=== PATIENT | female | born 1940 | race Caucasian/White ===

== ENCOUNTER 2017-02-25 10:11 | Inpatient (IN) | payer MEDICARE, OTHER ==
[2017-02-25 11:32] LABS: #Lymphocytes 0.5 thou/uL (1.20-3.40); #Monocytes 1.1 thou/uL (0.11-0.59); #Neutrophils 16.5 thou/uL (1.40-6.50); %Basophils 0.1 % (0.0-1.0); %Lymphocytes 2.7 % (21.0-51.0); %Neutrophils 91.2 % (42.0-75.0); Hemoglobin 10.6 g/dL (12.0-16.0); Mean Corpuscular HGB CONC 30.8 g/dL (32.0-36.0); Mean Corpuscular Hemoglobin 24.1 pg (27.0-31.0); Mean Corpuscular Volume 78.2 fl (81.0-99.0); Mean Platelet Volume 7.5 fL (7.4-10.4); Platelet Count 473 thou/uL (130-400); RBC Distribution Width 18.4 % (11.5-14.5); Red Blood Cell (RBC) Count 4.41 mill/uL (4.20-5.40); White Blood Cell (WBC) Count 18.1 thou/uL (4.8-10.8)
[2017-02-25 11:54] LABS: ALT (SGPT) 43 U/L (8-55); AST (SGOT) 47 U/L (5-34); Alkaline Phosphatase 64 U/L (40-150); Anion Gap 12 mmol/L (10-20); BUN (Urea Nitrogen) 30 mg/dL (9.8-20.1); Bilirubin, Total 0.4 mg/dL (0.2-1.2); Calc. Creatinine Clearance 0 mL/min (70-130); Calcium 9.6 mg/dL (7.8-10.44); Carbon Dioxide 25 mmol/L (23-31); Chloride 101 mmol/L (98-107); Estimated GFR-MDRD 77; Globulin 3.2 g/dL (2.4-3.5); Glucose 145 mg/dL (83-110); Potassium 4.2 mmol/L (3.5-5.1); Protein, Total 7.2 g/dL (6.0-8.3); Sodium 134 mmol/L (136-145)
[2017-02-25] MEDS ORDERED: Fentanyl 100 MCG/2 ML VIAL ONE (12:11)
--- NOTE | 2017-02-25 13:59 | HP ---
PRIMARY CARE PHYSICIAN: Ashlyn Spaulding M.D. REASON FOR ADMISSION: Small-bowel obstruction. HISTORY OF PRESENT ILLNESS: A 76-year-old female who initially went to [facility] with a complaint of nausea, vomiting, and abdominal pain. The patient reports that last night she had several times vomiting containing food particles and bile. She was also continuously throwing up this morning as well and she was having abdominal pain which was crampy in nature, 5/10 in intensity. Subsequently patient was also noted abdominal bloating and distention. Her last bowel movement was this morning. The patient is still feeling gurgling sound in her abdomen. She also passes gas, but she is feeling more crampy pain. The patient was feeling dizzy, lightheaded, and weak and that is why she decided to go to the emergency room. At [facility], patient had CT of the abdomen and pelvis which showed small-bowel obstruction with multiple dilated fluid filled proximal small bowel loops and numerous decompressed small bowel loops in the right lower quadrant, mild inflammatory stranding noted in the right lower quadrant without any abscess, fatty liver, and sigmoid diverticulosis. At [facility], patient was given morphine 4 mg, Bentyl 20 mg, Reglan 10 mg, Zofran 4 mg, Pepcid 20 mg, IV fluids, Zofran ODT and subsequently this patient was transferred to our hospital for higher level of care. ER physician consulted Dr. Decker and Dr. Decker recommended medicine admission and he will consult. When I saw this patient, at that time, patient was complaining of abdominal distention. She denies any fever or chills. She denies any hematemesis. She denies any flu-like illness. She denies any constipation or diarrhea. REVIEW OF SYSTEMS: The following complete review of systems was negative, unless otherwise mentioned in the HPI or below: Constitutional: Weight loss or gain, ability to conduct usual activities. Skin: Rash, itching. Eyes: Double vision, pain. ENT/Mouth: Nose bleeding, neck stiffness, pain, tenderness. Cardiovascular: Palpitations, dyspnea on exertion, orthopnea. Respiratory: Shortness of breath, wheezing, cough, hemoptysis, fever or night sweats. Gastrointestinal: Poor appetite, abdominal pain, heartburn, nausea, vomiting, constipation, or diarrhea. Genitourinary: Urgency, frequency, dysuria, nocturia. Musculoskeletal: Pain, swelling. Neurologic/Psychiatric: Anxiety, depression. Allergy/Immunologic: Skin rash, bleeding tendency. Please see my HPI for pertinent positives and negative. All other review of systems reviewed and negative except as mentioned in the HPI. PAST MEDICAL HISTORY: Hypertension on oral hypertensive medication. PAST SURGICAL HISTORY: Cholecystectomy, , tonsillectomy. PAST PSYCHIATRIC HISTORY: Reviewed and negative. SOCIAL HISTORY: The patient lives at home with family. No history of tobacco, alcohol or illicit drug use abuse. FAMILY HISTORY: No strong family history of premature CAD, CVA or cancer. ALLERGY: No known drug allergy. CURRENT HOME MEDICATIONS: Prinzide one tablet daily, verapamil ER one tablet daily, dose not certain because patient did not bring those medication at this point. EMERGENCY ROOM COURSE: The patient is given morphine 4 mg, Bentyl 20 mg, Reglan 10 mg, Zofran 4 mg, Pepcid 20 mg, IV fluid, and Zofran ODT. The patient is given fentanyl 50 microgram and IV fluids 1 more liter in our emergency room. PHYSICAL EXAMINATION: VITAL SIGNS: Currently, blood pressure 116/65, pulse 103, respiratory rate 16, temperature 98.8, saturation 95% on room air, and weight 72.5 kilograms. GENERAL: Patient is currently alert, awake, no obvious acute distress. HEAD: Normocephalic, atraumatic. EYES: Pupils round, reactive to light. Extraocular muscles intact. ENT: Oropharynx within normal limits. Dry mucous membranes, no oral lesions. No pharyngeal erythema, no exudate. NECK: Supple, no JVD, no thyromegaly, no carotid bruits, no meningeal signs of irritation. LUNGS: Clear to auscultation without any rhonchi or rales. CARDIAC: S1 and S2 regular. No murmur, no gallop, no rub. ABDOMEN: Distended, bowel sounds present. Guarding and peritoneal signs noted especially in upper abdomen as well as in right lower quadrant. No suprapubic discomfort noted. BACK: No CVA tenderness. EXTREMITIES: Upper extremity; passive movement of all was normal. Lower extremities: No edema. Good peripheral pulsation. SKIN: No skin rash. HEMATOLOGICAL SYSTEM: No lymphadenopathy. PSYCHIATRIC: Normal affect. IMAGING DATA AND SIGNIFICANT LABORATORY DATA: 1. CT of the abdomen and pelvis showing small-bowel obstruction with multiple dilated loops, proximal small bowel and numerous decompressed small bowel loops in right lower quadrant. Associated inflammatory changes in right lower quadrant, mesenteric fat, no abscess, fatty liver and sigmoid diverticulosis without diverticulitis. 2. X-ray abdomen showing partial small-bowel obstruction. 3. CBC: WBC 18.1, hemoglobin 10.6, platelet 473 with left shift. 4. BMP: Sodium 134, potassium 4.2, chloride 101, carbon dioxide 25, BUN 30, creatinine 0.74, glucose 145, calcium 9.6. 5. LFT: AST 47, ALT 43, alkaline phosphatase 64, albumin 4.0. ASSESSMENT AND PLAN/IMPRESSION: 1. Partial small-bowel obstruction. This patient has several surgeries in the past including cholecystectomy, , I am suspecting her partial small- bowel obstruction is related with adhesions. At this point, we will treat medically and conservatively with NG tube with low intermittent suction. She will be only allowed with medicine with sips of water. We will consult General Surgery for backup. We are hoping best that with conservative therapy, she should improve. We will try to get small bowel x-ray tomorrow. After negative small-bowel obstruction, then we will start advancing diet to gastrointestinal bland diet. We will monitor her at the surgical floor while in hospital. The patient will be given IV fluid with n.p.o. status. We will control her pain with morphine p.r.n. basis. The patient also has some inflammatory stranding in mesenteric fat and that is why we will start empiric antibiotic therapy with Levaquin and Flagyl. 2. Dehydration. The patient will be given IV fluid with NS at 125 mL per hour. 3. Leukocytosis, likely related with mesenteric fat stranding and inflammatory changes in right lower quadrant. We will start Levaquin and Flagyl while in hospital. 4. Microcytic anemia. We will check ferritin, iron, TIBC and based on that finding, we will decide whether we need to treat with iron infusion or not. We will repeat CBC tomorrow. 5. Hypertension. Currently, patient is having low blood pressures, so we will hold on antihypertensive medication. We will verify her home medication and then we will resume medication as needed. 6. Deep venous thrombosis prophylaxis, Lovenox 40 mg subcu daily. 7. Gastrointestinal prophylaxis, Pepcid 20 mg IV b.i.d. 8. Code status: The patient is FULL CODE. Patient's daughter is surrogate decision maker. Disposition plan based on clinical course. We are expecting patient's stay in the hospital more than 2 midnights. Plan of care discussed with the patient and family member at bedside in the emergency room. DARIA
--- NOTE | 2017-02-25 15:06 | RAD ---
CHEST ONE VIEW: HISTORY: Small bowel obstruction. NG tube placement. COMPARISON: Abdomen radiograph from the same day. FINDINGS: Enteric tube is in place with the tip in the gastric body. Lungs are hypoinflated. No pneumothorax. IMPRESSION: Enteric tube tip in the gastric body. POS: OFF
[2017-02-25] MEDS ORDERED: Diabetic Tussin 200 MG/10 ML UDCUP PO PRN (15:28)
[2017-02-25] MEDS ORDERED: Mag-Al 1200 mg/1200 mg/30 ML UDCUP PO PRN (15:28)
[2017-02-25] MEDS ORDERED: Eucerin (Mineral Oil/Petrolatum,White) 30 gm Jar TOP PRN (15:28)
[2017-02-25] MEDS ORDERED: Ondansetron ODT 4 MG TAB PO PRN (15:28)
[2017-02-25] MEDS ORDERED: Chloraseptic Spray 180 ml Bottle PO PRN (15:28)
[2017-02-25] MEDS ORDERED: Acetaminophen 325 MG TAB PO PRN (15:28)
[2017-02-25] MEDS ORDERED: Artificial Tears 18 DROP/0.9 ML EA EYE PRN (15:28)
[2017-02-25] MEDS ORDERED: Milk Of Magnesia 30 ML UDCUP PO PRN (15:28)
[2017-02-25] MEDS ORDERED: Acetaminophen 650 MG Suppository PR PRN (15:28)
[2017-02-25] MEDS ORDERED: Sodium Chloride 0.65% Nasal 44 ML BOT EA NARE PRN (15:28)
[2017-02-25] MEDS ORDERED: Bisacodyl 10 MG SUPP PR PRN (15:28)
[2017-02-25] MEDS ORDERED: Ondansetron HCl/PF 4 MG/2 ML Vial IVP PRN (15:28)
[2017-02-25] MEDS ORDERED: Loratadine 10 MG TAB PO PRN (15:28)
[2017-02-25] MEDS ORDERED: Morphine 4 MG/ML VIAL SLOW IVP PRN (15:28)
[2017-02-25] MEDS ORDERED: hydrALAZINE 20 MG/ML VIAL SLOW IVP PRN (15:28)
[2017-02-25] MEDS: Sodium Chloride 0.9% 1,000 ML IV SCH (15:30)
[2017-02-25 16:25] VITALS: BMI 32.3
--- NOTE | 2017-02-25 17:57 | CON ---
DATE OF CONSULTATION: 02/25/2017 REQUESTING PHYSICIAN: Lissett De La Cruz M.D. ATTENDING SURGEON: Dr. Decker. REASON FOR CONSULTATION: Small-bowel obstruction. HISTORY OF PRESENT ILLNESS: The patient is a 76-year-old woman who reports having 4-5 year history o f intermittent nausea and vomiting which have at times required hospital admission. They usually res olve through nonoperative management to include medications and/or NG tube placement. The patient mo st recently yesterday had an episode of nausea and vomiting. Denies diarrhea. Denies fever, chills, or weight loss. The patient presented to the Emergency Department in [place] where she underwent e valuation and examination to include IV contrast, CT of her abdomen and pelvis that showed a possible small-bowel obstruction and the patient was transferred here to our facility where she was admitted and we were asked to evaluate her by consultation. CURRENT MEDICATIONS: Prinzide, verapamil ER. PAST MEDICAL HISTORY: Hypertension. PAST SURGICAL HISTORY: Cholecystectomy, , and tonsillectomy. SOCIAL HISTORY: Patient currently lives at home with family. She denies drug, tobacco or alcohol us e. ALLERGIES: No known allergies. REVIEW OF SYSTEMS: Ten point review of systems is negative unless otherwise stated. PHYSICAL EXAMINATION: VITAL SIGNS: Temperature 98.3, heart rate 94, blood pressure 127/67, oxygen saturation 94% on room a ir. GENERAL: The patient is sitting in hospital bed. She is awake, alert, and oriented x3. She does navas ve an NG tube in place in her right naris. HEENT: Head is normocephalic, atraumatic. Eyes: Extraocular motion intact. PERRLA bilaterally. E ars are atraumatic without discharge. Right naris has NG tube in place, left naris is atraumatic wit hout discharge. Oropharynx is clear. NECK: Nontender. Trachea is midline. No JVD. CHEST: Clear to auscultation bilaterally. HEART: Regular rate and rhythm. ABDOMEN: Soft and nontender with no peritoneal signs. She does have hypoactive bowel sounds. BACK: Nontender. Specifically, no CVA tenderness. EXTREMITIES: Neurovascularly intact. No evidence of edema. LABORATORY DATA: White blood cell count 18.1, hemoglobin 10.6, hematocrit 34.5, and platelets 473. Sodium 134, potassium 4.2, chloride 101, CO2 25, BUN 30, creatinine 0.74, glucose 145. LFTs are unre markable. RADIOGRAPHS: 1. CT of the abdomen and pelvis with IV contrast shows evidence of a small-bowel obstruction with mu ltiple dilated fluid filled proximal small bowel loops and numerous decompressed small bowel loops in the right lower quadrant suggesting a right lower quadrant/mid right abdomen transition point. Mild associated inflammatory stranding noted in the right lower quadrant mesenteric fat, with no evidence for abscess or free intraperitoneal air. The appendix appears normal. 2. Probable hepatic steatosis. 3. Sigmoid diverticulosis without evidence of diverticulitis. 4. AP chest shows NG tube with tip lying in the gastric body. ASSESSMENT AND PLAN: 1. Abdominal pain with nausea and vomiting. 2. Possible small-bowel obstruction. The patient does report passing gas and feeling much better af ter the NG tube has been placed. Plan will be to obtain a small bowel follow through to evaluate for possible small-bowel obstruction. Continue IV hydration and NG tube to intermittent suction, antiem etics and pain control. Evaluation examination and radiographs and laboratory findings were all disc ussed with Dr. Decker, who was in agreement with this plan. We will reevaluate the patient in the [facility], [place], sooner as needed.
[2017-02-25] MEDS: Famotidine/PF 20 mg/2ml Vial SLOW IVP SCH (21:29)
[2017-02-25 22:06] LABS: Bilirubin Negative (Negative); Blood, Urine Negative (Negative); Clarity CLEAR (Clear); Glucose, Urine (Dipstick) Negative (Negative); Leukocyte Negative (Negative); Nitrite Negative (Negative); Protein, Urine (Dipstick) Negative (Neg-Trace); Specific Gravity, Urine 1.036 (1.002-1.036); Urobilinogen 0.2 mg/dL (0.2-1.0)
[2017-02-25 22:08] LABS: Bacteria/HPF None Seen HPF (None Seen); Hyaline Casts/LPF 0-3 HYALINE CAST LPF (0-3 Hyaline); Squamous Epithelial None Seen HPF (0-3); WBC/HPF 0-3 HPF (0-3)
--- NOTE | 2017-02-25 23:31 | PRG ---
DATE OF SERVICE: 02/25/2017 SUBJECTIVE: Ms. Alves is a 76-year-old female who has a general surgical consultation earlier this afternoon for possible small-bowel obstruction. The patient had an NG tube placed. It is currently functioning well. Patient denies any further nausea or vomiting. OBJECTIVE: VITAL SIGNS: Stable. Patient is afebrile. GENERAL: Patient resting in bed, in no acute distress. LUNGS: Breathing nonlabored. ABDOMEN: Soft, nontender, nondistended. ASSESSMENT AND PLAN: As documented in consultation note earlier today. Continue care as ordered. W e will continue to monitor.
[2017-02-26] MEDS: HYDROcodone/Acetaminophen 5/325 mg Tablet PO PRN ×3 (01:02→19:48)
[2017-02-26] MEDS: Sodium Chloride 0.9% 1,000 ML IV SCH ×3 (02:12→22:38)
[2017-02-26 06:10] LABS: #Eosinphils 0.1 thou/uL (0.0-0.7); #Lymphocytes 1.2 thou/uL (1.20-3.40); #Monocytes 1.5 thou/uL (0.11-0.59); #Neutrophils 9.9 thou/uL (1.40-6.50); %Basophils 0.4 % (0.0-1.0); %Eosinophils 1.1 % (0.0-10.0); %Lymphocytes 9.7 % (21.0-51.0); %Monocytes 11.4 % (0.0-10.0); %Neutrophils 77.4 % (42.0-75.0); Hemoglobin 8.4 g/dL (12.0-16.0); Mean Corpuscular HGB CONC 30.4 g/dL (32.0-36.0); Mean Corpuscular Hemoglobin 24.3 pg (27.0-31.0); Mean Corpuscular Volume 79.7 fl (81.0-99.0); Mean Platelet Volume 7.1 fL (7.4-10.4); Platelet Count 361 thou/uL (130-400); RBC Distribution Width 18.5 % (11.5-14.5); Red Blood Cell (RBC) Count 3.46 mill/uL (4.20-5.40); White Blood Cell (WBC) Count 12.8 thou/uL (4.8-10.8)
[2017-02-26 06:17] LABS: ALT (SGPT) 34 U/L (8-55); AST (SGOT) 34 U/L (5-34); Albumin 3.2 g/dL (3.4-4.8); Alkaline Phosphatase 53 U/L (40-150); Anion Gap 11 mmol/L (10-20); BUN (Urea Nitrogen) 19 mg/dL (9.8-20.1); Bilirubin, Total 0.4 mg/dL (0.2-1.2); Calc. Creatinine Clearance 86 mL/min (70-130); Calcium 8.6 mg/dL (7.8-10.44); Carbon Dioxide 22 mmol/L (23-31); Chloride 111 mmol/L (98-107); Estimated GFR-MDRD 88; Globulin 2.4 g/dL (2.4-3.5); Glucose 94 mg/dL (83-110); Iron 16 ug/dL (50-170); Iron Binding Capacity, Total 395 mcg/dL (265-497); Magnesium 2.2 mg/dL (1.6-2.6); Phosphorus 2.3 mg/dL (2.3-4.7); Protein, Total 5.6 g/dL (6.0-8.3); Sodium 140 mmol/L (136-145)
[2017-02-26 06:19] LABS: Lactic Acid 0.7 mmol/L (0.5-2.2)
[2017-02-26] MEDS ORDERED: FLU VACC TS2017-18 (>65YR) 0.5 ML SYRINGE IM ONE (09:00)
--- NOTE | 2017-02-26 10:29 | PDOC.PN ---
- Subjective Encounter Start Date: 02/26/17 Encounter Start Time: 08:50 Patient seen and examined. No new complaints. No overnight events - Objective Resuscitation Status: Resuscitation Status FULL:Full Resuscitation MAR Reviewed: Yes Vital Signs & Weight: Vital Signs (12 hours) Temp Pulse Resp BP Pulse Ox 02/26/17 08:00 98.5 F 75 15 02/26/17 07:45 98.5 F 75 15 143/64 H 91 L 02/26/17 04:00 98.5 F 81 18 125/67 90 L 02/26/17 00:00 98.2 F 84 19 148/61 H 90 L Weight Weight 159 lb 15.831 oz I&O: 02/25/17 02/26/17 02/27/17 06:59 06:59 06:59 Intake Total 1432 Output Total 400 Balance 1032 Result Diagrams: 02/26/17 05:23 02/26/17 05:23 Radiology Reviewed by me: Yes Phys Exam - Physical Examination Constitutional: NAD HEENT: PERRLA, moist MMs Neck: no JVD, supple Respiratory: no wheezing, no rales, no rhonchi Cardiovascular: RRR, no significant murmur, no rub Gastrointestinal: soft, no distention, positive bowel sounds Musculoskeletal: no edema, pulses present Neurological: non-focal, normal sensation, moves all 4 limbs Psychiatric: normal affect, A&O x 3 Skin: no rash, normal turgor Dx/Plan (1) Partial small bowel obstruction Status: Acute (2) Hypertension Code(s): I10 - ESSENTIAL (PRIMARY) HYPERTENSION Status: Chronic (3) Iron deficiency anemia Code(s): D50.9 - IRON DEFICIENCY ANEMIA, UNSPECIFIED Status: Chronic (4) Obesity (BMI 30.0-34.9) Code(s): E66.9 - OBESITY, UNSPECIFIED Status: Chronic - Plan cont current plan of care, plan discussed w/ family * today small bowel xray * if normal will advance diet * will give one dose of iron infusion for anemia * medication reviewed as below * symptomatic treatment Review of Systems - Review of Systems ENT: negative: Ear Pain, Ear Discharge, Nose Pain, Nose Discharge, Nose Congestion, Mouth Pain, Mouth Swelling, Throat Pain, Throat Swelling, Other Respiratory: negative: Cough, Dry, Shortness of Breath, Hemoptysis, SOB with Excertion, Pleuritic Pain, Sputum, Wheezing Cardiovascular: negative: chest pain, palpitations, orthopnea, paroxysmal nocturnal dyspnea, edema, light headedness, other Gastrointestinal: negative: Nausea, Vomiting, Abdominal Pain, Diarrhea, Constipation, Melena, Hematochezia, Other Genitourinary: negative: Dysuria, Frequency, Incontinence, Hematuria, Retention , Other Musculoskeletal: negative: Neck Pain, Shoulder Pain, Arm Pain, Back Pain, Hand Pain, Leg Pain, Foot Pain, Other Skin: negative: Rash, Lesions, Mayank, Bruising, Other - Medications/Allergies Allergies/Adverse Reactions: Allergies Allergy/AdvReac Type Severity Reaction Status Date / Time No Known Allergies Allergy Unverified 02/25/17 15:42 Medications: Current Medications Acetaminophen (Tylenol) 650 mg PO Q4H PRN PRN Reason: Headache/Fever or Pain Acetaminophen (Tylenol) 650 mg TX Q4H PRN PRN Reason: Headache/Fever or Pain Hydrocodone Bitart/Acetaminophen ([place] 5/325) 1 tab PO Q4H PRN PRN Reason: Moderate Pain (4-6) Last Admin: 02/26/17 02:12 Dose: 1 tab Al Hydroxide/Mg Hydroxide (Maalox) 30 ml PO Q6H PRN PRN Reason: Heartburn or Indigestion Albuterol/Ipratropium (Duoneb) 3 ml NEB [id number] PRN PRN Reason: SOB &/or Wheezing Artificial Tears (Tears Naturale) 0 drop EA EYE PRN PRN PRN Reason: Dry Eyes Bisacodyl (Dulcolax) 10 mg TX Q24H PRN PRN Reason: Constipation Enoxaparin Sodium (Lovenox) 40 mg SC 0900 [facility] Famotidine (Pepcid) 20 mg SLOW IVP Q12HR [facility] Last Admin: 02/25/17 21:29 Dose: 20 mg Guaifenesin (Robitussin Sf) 200 mg PO Q4H PRN PRN Reason: Cough Hydralazine HCl (Apresoline) 10 mg SLOW IVP Q4H PRN PRN Reason: Systolic BP > 180 Sodium Chloride (Normal Saline 0.9%) 1,000 mls @ 100 mls/hr IV .Q10H [facility] Last Admin: 02/26/17 02:12 Dose: 1,000 mls Loratadine (Claritin) 10 mg PO DAILYPRN PRN PRN Reason: Sinus Symptoms Magnesium Hydroxide (Milk Of Magnesium) 30 ml PO DAILYPRN PRN PRN Reason: Constipation Mineral Oil/White Petrolatum (Eucerin Cream) 0 gm TOP BIDPRN PRN PRN Reason: Dry Skin Morphine Sulfate (Morphine) 2 mg SLOW IVP Q3H PRN PRN Reason: Pain Last Admin: 02/26/17 01:06 Dose: 2 mg Ondansetron HCl (Zofran Odt) 4 mg PO Q6H PRN PRN Reason: Nausea/Vomiting Ondansetron HCl (Zofran) 4 mg IVP Q6H PRN PRN Reason: Nausea/Vomiting Phenol (Chloraseptic [place] 180 Ml Bot) 0 ml PO PRN PRN PRN Reason: Sore Throat Sodium Chloride (Burt Nasal [place] 0.65%) 0 ml EA NARE QIDPRN PRN PRN Reason: Nasal Congestion
[2017-02-26] MEDS: Enoxaparin Sodium 40 MG/0.4 ML SYRINGE SC SCH (10:33)
[2017-02-26] MEDS: Famotidine/PF 20 mg/2ml Vial SLOW IVP SCH ×2 (10:34→19:50)
[2017-02-26] MEDS ORDERED: Iron Sucrose Complex 200 MG in Sodium Chloride 0.9% 250 ML 250 ML IVPB SCH (12:00)
--- NOTE | 2017-02-26 12:50 | RAD ---
GASTROGRAFIN SMALL BOWEL FOLLOW-THROUGH: HISTORY: The patient has a history of a more distal small bowel obstruction noted on recent CT. COMPARISON: CT examination of 02/25/2017. FINDINGS: Preliminary torque tester film shows less pronounced small bowel distention when compared to the previous CT study. Gastrografin was introduced through the NG tube. The small bowel transit time was approximately 45 m inutes. There is a transition from minimally dilated proximal to mid ileum to less dilated distal sm all bowel loops, but it is difficult to show a definite transition point. IMPRESSION: Findings compatible with a low grade partial small bowel obstruction. the degree of distention of th e small bowel loops is less pronounced than on the previous CT examination. POS: ALYCE
--- NOTE | 2017-02-26 15:10 | PRG ---
DATE OF SERVICE: 02/26/2017 SUBJECTIVE: The patient is hospital day #2 status post possible small-bowel obstruction. The patien t was evaluated yesterday and after her NG tube placement, patient felt that she had a significant im provement. This morning, she underwent a small bowel follow through. During the procedure, the patie nt had developed a significant amount of diarrhea and has had multiple bowel movements this morning t o the point that the patient states that is now her chief complaint. The patient denies nausea, bro es abdominal pain. PHYSICAL EXAMINATION: VITAL SIGNS: Temperature is 98.5, heart rate 75, blood pressure 143/64, respirations 15, oxygen satu ration 92% on room air. GENERAL: The patient is sitting in a chair at her bedside. She is awake, alert, and oriented x3. G [place]gow coma scale is 15. CHEST: Clear to auscultation bilaterally. HEART: Regular rate and rhythm. ABDOMEN: Soft, flat, nontender. EXTREMITIES: Neurovascularly intact x4. Per the nursing report, the patient had 400 mL of fluid from her NG tube overnight. LABORATORY DATA: White blood cell count 12.8, hemoglobin 8.4, hematocrit 27.6, platelets 361. Sodiu m 140, potassium 4.0, chloride 111, CO2 22, BUN 19, creatinine 0.66, magnesium 2.2, and phosphorus 2. 3. RADIOGRAPHIC FINDINGS: Small bowel follow through, findings compatible with low-grade partial small- bowel obstruction, the degree of distention of the small bowel loops is less pronounced than on the p revious CT examination. ASSESSMENT AND PLAN: Possible low grade small-bowel obstruction, resolving. Plan will be to discont inue her nasogastric tube and start clear liquid diet. We will evaluate this afternoon and if the rosangela calderon tolerates clears overnight, we will advance her diet in the morning. This case was discussed with Dr. Decker during rounds this morning.
--- NOTE | 2017-02-26 23:19 | PRG ---
DATE OF SERVICE: 02/26/2017 SUBJECTIVE: Julianne Alves is a 76-year-old female, hospitalized due to possible small-bowel obstr uction. Today, patient had multiple bowel movements. Her diet has been advanced. She is tolerating her diet at this time without complaints of nausea or vomiting. OBJECTIVE: VITAL SIGNS: Stable. GENERAL: The patient is afebrile, resting in bed, appears comfortable, breathing is nonlabored. ASSESSMENT: As documented daily progress note. PLAN: Continue care as ordered. Continue to monitor. A.m. labs.
[2017-02-27] MEDS: Sodium Chloride 0.9% 1,000 ML IV SCH ×2 (05:21→17:00)
[2017-02-27 06:14] LABS: Anion Gap 10 mmol/L (10-20); BUN (Urea Nitrogen) 18 mg/dL (9.8-20.1); Calc. Creatinine Clearance 88 mL/min (70-130); Calcium 8.9 mg/dL (7.8-10.44); Carbon Dioxide 24 mmol/L (23-31); Chloride 107 mmol/L (98-107); Estimated GFR-MDRD Greater than 90; Glucose 102 mg/dL (83-110); Phosphorus 1.6 mg/dL (2.3-4.7); Potassium 3.7 mmol/L (3.5-5.1); Sodium 137 mmol/L (136-145)
[2017-02-27] MEDS ORDERED: Potassium Phosphate 15 MMOL in Sodium Chloride 0.9% 250 ML 250 ML IVPB SCH (07:30)
[2017-02-27] MEDS: Enoxaparin Sodium 40 MG/0.4 ML SYRINGE SC SCH (10:01)
[2017-02-27] MEDS: Famotidine/PF 20 mg/2ml Vial SLOW IVP SCH (10:02)
--- NOTE | 2017-02-27 10:11 | PDOC.PN ---
- Subjective Encounter Start Date: 02/27/17 Encounter Start Time: 08:00 Patient seen and examined. No new complaints. No overnight events today pt has BRBPR - Objective Resuscitation Status: Resuscitation Status FULL:Full Resuscitation MAR Reviewed: Yes Vital Signs & Weight: Vital Signs (12 hours) Temp Pulse Resp BP Pulse Ox 02/27/17 07:52 98.5 F 96 16 133/68 93 L 02/27/17 04:50 98.2 F 79 16 133/69 91 L 02/27/17 00:04 98.9 F 90 17 125/71 99 Weight Weight 159 lb 15.831 oz I&O: 02/26/17 02/27/17 02/28/17 06:59 06:59 06:59 Intake Total 1432 1749 Output Total 400 Balance 1032 1749 Result Diagrams: 02/26/17 05:23 02/27/17 04:59 Radiology Reviewed by me: Yes Phys Exam - Physical Examination Constitutional: NAD HEENT: PERRLA, moist MMs, sclera anicteric Neck: no JVD, supple Respiratory: no wheezing, no rales, no rhonchi Cardiovascular: RRR, no significant murmur, no rub Gastrointestinal: soft, non-tender, no distention, positive bowel sounds Musculoskeletal: no edema, pulses present Neurological: non-focal, normal sensation, moves all 4 limbs Psychiatric: normal affect, A&O x 3 Skin: no rash, normal turgor Dx/Plan (1) Partial small bowel obstruction Status: Acute (2) Hypertension Code(s): I10 - ESSENTIAL (PRIMARY) HYPERTENSION Status: Chronic (3) Iron deficiency anemia Code(s): D50.9 - IRON DEFICIENCY ANEMIA, UNSPECIFIED Status: Chronic (4) Obesity (BMI 30.0-34.9) Code(s): E66.9 - OBESITY, UNSPECIFIED Status: Chronic (5) Lower GI bleed Code(s): K92.2 - GASTROINTESTINAL HEMORRHAGE, UNSPECIFIED Status: Acute (6) Hypophosphatemia Code(s): E83.39 - OTHER DISORDERS OF PHOSPHORUS METABOLISM Status: Acute - Plan cont current plan of care * pt has upper and lower endoscopy in less than 2 years and she does not want to go again for that * will observe in hospital * if H & H drops, then will give transfusion * medication reviewed as below * symptomatic treatment. * replace potassium phosphate * change pepcid po * dc lovenox * dc iron as pt is not tolerating Review of Systems - Review of Systems Constitutional: negative: fever, chills, sweats, weakness, malaise, other ENT: negative: Ear Pain, Ear Discharge, Nose Pain, Nose Discharge, Nose Congestion, Mouth Pain, Mouth Swelling, Throat Pain, Throat Swelling, Other Respiratory: negative: Cough, Dry, Shortness of Breath, Hemoptysis, SOB with Excertion, Pleuritic Pain, Sputum, Wheezing Cardiovascular: negative: chest pain, palpitations, orthopnea, paroxysmal nocturnal dyspnea, edema, light headedness, other Gastrointestinal: Hematochezia. negative: Nausea, Vomiting, Abdominal Pain, Diarrhea, Constipation, Melena, Other Genitourinary: negative: Dysuria, Frequency, Incontinence, Hematuria, Retention , Other Musculoskeletal: negative: Neck Pain, Shoulder Pain, Arm Pain, Back Pain, Hand Pain, Leg Pain, Foot Pain, Other Skin: negative: Rash, Lesions, Mayank, Bruising, Other - Medications/Allergies Allergies/Adverse Reactions: Allergies Allergy/AdvReac Type Severity Reaction Status Date / Time No Known Allergies Allergy Unverified 02/25/17 15:42 Medications: Current Medications Acetaminophen (Tylenol) 650 mg PO Q4H PRN PRN Reason: Headache/Fever or Pain Acetaminophen (Tylenol) 650 mg OR Q4H PRN PRN Reason: Headache/Fever or Pain Hydrocodone Bitart/Acetaminophen ([place] 5/325) 1 tab PO Q4H PRN PRN Reason: Moderate Pain (4-6) Last Admin: 02/26/17 19:48 Dose: 1 tab Al Hydroxide/Mg Hydroxide (Maalox) 30 ml PO Q6H PRN PRN Reason: Heartburn or Indigestion Last Admin: 02/27/17 06:45 Dose: 30 ml Albuterol/Ipratropium (Duoneb) 3 ml NEB [id number] PRN PRN Reason: SOB &/or Wheezing Artificial Tears (Tears Naturale) 0 drop EA EYE PRN PRN PRN Reason: Dry Eyes Bisacodyl (Dulcolax) 10 mg OR Q24H PRN PRN Reason: Constipation Enoxaparin Sodium (Lovenox) 40 mg SC 0900 SHAYY Last Admin: 02/27/17 10:01 Dose: Not Given Famotidine (Pepcid) 20 mg SLOW IVP Q12HR [facility] Last Admin: 02/27/17 10:02 Dose: Not Given Ferrous Sulfate (Ferrous Sulfate) 300 mg PO QID [facility] Last Admin: 02/27/17 10:01 Dose: Not Given Guaifenesin (Robitussin Sf) 200 mg PO Q4H PRN PRN Reason: Cough Hydralazine HCl (Apresoline) 10 mg SLOW IVP Q4H PRN PRN Reason: Systolic BP > 180 Sodium Chloride (Normal Saline 0.9%) 1,000 mls @ 100 mls/hr IV .Q10H [facility] Last Admin: 02/27/17 05:21 Dose: Not Given Potassium Phosphate 15 mmol/ (Sodium Chloride) 255 mls @ 62.5 mls/hr IVPB 0730 [facility] Stop: 02/27/17 11:35 Last Admin: 02/27/17 08:16 Dose: 255 mls Loratadine (Claritin) 10 mg PO DAILYPRN PRN PRN Reason: Sinus Symptoms Magnesium Hydroxide (Milk Of Magnesium) 30 ml PO DAILYPRN PRN PRN Reason: Constipation Mineral Oil/White Petrolatum (Eucerin Cream) 0 gm TOP BIDPRN PRN PRN Reason: Dry Skin Morphine Sulfate (Morphine) 2 mg SLOW IVP Q3H PRN PRN Reason: Pain Last Admin: 02/26/17 01:06 Dose: 2 mg Ondansetron HCl (Zofran Odt) 4 mg PO Q6H PRN PRN Reason: Nausea/Vomiting Ondansetron HCl (Zofran) 4 mg IVP Q6H PRN PRN Reason: Nausea/Vomiting Phenol (Chloraseptic [place] 180 Ml Bot) 0 ml PO PRN PRN PRN Reason: Sore Throat Sodium Chloride ([place] Nasal [place] 0.65%) 0 ml EA NARE QIDPRN PRN PRN Reason: Nasal Congestion
--- NOTE | 2017-02-27 12:20 | PRG ---
DATE OF SERVICE: 02/27/2017 This patient is one that we are seeing in consultation for a possible small-bowel obstruction. The p atient had her nasogastric tube discontinued yesterday. She had also undergone an acute GI series an d small bowel follow through did not show a high-grade obstruction. The patient had her diet advance d yesterday up into a regular diet. The patient tolerated this well overnight, has had no issues as far as abdominal pain, nausea or vomiting. There is no acute surgical indication at this time and we will sign off. This was discussed with Dr. De La Cruz and the patient was evaluated by Dr. Decker this morning during rounds.
[2017-02-27] MEDS: HYDROcodone/Acetaminophen 5/325 mg Tablet PO PRN (21:00)
[2017-02-27] MEDS: Famotidine 20 MG TAB PO SCH (21:01)
[2017-02-27] MEDS ORDERED: Lisinopril/Hydrochlorothiazide 20/25 mg Tablet PO SCH (22:15)
[2017-02-28] MEDS: Sodium Chloride 0.9% 1,000 ML IV SCH ×2 (04:42→14:54)
[2017-02-28 06:37] LABS: #Eosinphils 0.2 thou/uL (0.0-0.7); #Lymphocytes 1.3 thou/uL (1.20-3.40); #Monocytes 1.4 thou/uL (0.11-0.59); #Neutrophils 8.2 thou/uL (1.40-6.50); %Basophils 0.3 % (0.0-1.0); %Eosinophils 1.7 % (0.0-10.0); %Lymphocytes 11.6 % (21.0-51.0); %Monocytes 12.5 % (0.0-10.0); %Neutrophils 73.8 % (42.0-75.0); Hemoglobin 8.6 g/dL (12.0-16.0); Mean Corpuscular HGB CONC 30.5 g/dL (32.0-36.0); Mean Corpuscular Hemoglobin 24.5 pg (27.0-31.0); Mean Corpuscular Volume 80.5 fl (81.0-99.0); Mean Platelet Volume 8.1 fL (7.4-10.4); Platelet Count 373 thou/uL (130-400); RBC Distribution Width 19.4 % (11.5-14.5); Red Blood Cell (RBC) Count 3.52 mill/uL (4.20-5.40); White Blood Cell (WBC) Count 11.2 thou/uL (4.8-10.8)
[2017-02-28 06:54] LABS: Anion Gap 11 mmol/L (10-20); BUN (Urea Nitrogen) 12 mg/dL (9.8-20.1); Calc. Creatinine Clearance 97 mL/min (70-130); Carbon Dioxide 25 mmol/L (23-31); Chloride 105 mmol/L (98-107); Estimated GFR-MDRD Greater than 90; Glucose 101 mg/dL (83-110); Magnesium 2.3 mg/dL (1.6-2.6); Potassium 4.1 mmol/L (3.5-5.1); Sodium 137 mmol/L (136-145)
[2017-02-28 07:20] LABS: Phosphorus 1.8 mg/dL (2.3-4.7)
[2017-02-28] MEDS: Famotidine 20 MG TAB PO SCH (08:27)
[2017-02-28] MEDS ORDERED: Furosemide 20 MG/2 ML VIAL SLOW IVP SCH (10:15)
--- NOTE | 2017-02-28 10:18 | PDOC.PN ---
- Subjective Encounter Start Date: 02/28/17 Encounter Start Time: 07:30 Patient seen and examined. No new complaints. No overnight events - Objective Resuscitation Status: Resuscitation Status FULL:Full Resuscitation MAR Reviewed: Yes Vital Signs & Weight: Vital Signs (12 hours) Temp Pulse Resp BP Pulse Ox 02/28/17 07:55 98.8 F 81 16 126/73 94 L 02/28/17 04:00 98.7 F 79 18 152/79 H 94 L 02/28/17 00:28 70 02/28/17 00:00 98.7 F 70 19 137/76 93 L Weight Weight 159 lb 15.831 oz I&O: 02/27/17 02/28/17 03/01/17 06:59 06:59 06:59 Intake Total 1749 2200 Balance 1749 2200 Result Diagrams: 02/28/17 05:37 02/28/17 05:37 Phys Exam - Physical Examination Constitutional: NAD HEENT: PERRLA, moist MMs, sclera anicteric Neck: no JVD, supple Respiratory: no wheezing, no rales, no rhonchi Cardiovascular: RRR, no significant murmur, no rub Gastrointestinal: soft, non-tender, no distention, positive bowel sounds Musculoskeletal: no edema, pulses present Neurological: non-focal, normal sensation, moves all 4 limbs Lymphatic: no nodes Psychiatric: normal affect, A&O x 3 Skin: no rash, normal turgor Dx/Plan (1) Partial small bowel obstruction Status: Acute (2) Hypertension Code(s): I10 - ESSENTIAL (PRIMARY) HYPERTENSION Status: Chronic (3) Iron deficiency anemia Code(s): D50.9 - IRON DEFICIENCY ANEMIA, UNSPECIFIED Status: Chronic (4) Obesity (BMI 30.0-34.9) Code(s): E66.9 - OBESITY, UNSPECIFIED Status: Chronic (5) Lower GI bleed Code(s): K92.2 - GASTROINTESTINAL HEMORRHAGE, UNSPECIFIED Status: Acute - Plan cont current plan of care * medication reviewed as below * symptomatic treatment * give lasix * discharge home * see discharge summery. Review of Systems - Review of Systems Eyes: negative: Pain, Vision Change, Conjunctivae Inflammation, Eyelid Inflammation, Redness, Other ENT: negative: Ear Pain, Ear Discharge, Nose Pain, Nose Discharge, Nose Congestion, Mouth Pain, Mouth Swelling, Throat Pain, Throat Swelling, Other Respiratory: negative: Cough, Dry, Shortness of Breath, Hemoptysis, SOB with Excertion, Pleuritic Pain, Sputum, Wheezing Cardiovascular: negative: chest pain, palpitations, orthopnea, paroxysmal nocturnal dyspnea, edema, light headedness, other Gastrointestinal: negative: Nausea, Vomiting, Abdominal Pain, Diarrhea, Constipation, Melena, Hematochezia, Other Genitourinary: negative: Dysuria, Frequency, Incontinence, Hematuria, Retention , Other Musculoskeletal: negative: Neck Pain, Shoulder Pain, Arm Pain, Back Pain, Hand Pain, Leg Pain, Foot Pain, Other Skin: negative: Rash, Lesions, Mayank, Bruising, Other - Medications/Allergies Allergies/Adverse Reactions: Allergies Allergy/AdvReac Type Severity Reaction Status Date / Time No Known Allergies Allergy Unverified 02/25/17 15:42 Medications: Current Medications Acetaminophen (Tylenol) 650 mg PO Q4H PRN PRN Reason: Headache/Fever or Pain Acetaminophen (Tylenol) 650 mg HI Q4H PRN PRN Reason: Headache/Fever or Pain Hydrocodone Bitart/Acetaminophen ([place] 5/325) 1 tab PO Q4H PRN PRN Reason: Moderate Pain (4-6) Last Admin: 02/27/17 21:00 Dose: 1 tab Al Hydroxide/Mg Hydroxide (Maalox) 30 ml PO Q6H PRN PRN Reason: Heartburn or Indigestion Last Admin: 02/27/17 06:45 Dose: 30 ml Albuterol/Ipratropium (Duoneb) 3 ml NEB [id number] PRN PRN Reason: SOB &/or Wheezing Artificial Tears (Tears Naturale) 0 drop EA EYE PRN PRN PRN Reason: Dry Eyes Bisacodyl (Dulcolax) 10 mg HI Q24H PRN PRN Reason: Constipation Famotidine (Pepcid) 20 mg PO BID [facility] Last Admin: 02/28/17 08:27 Dose: 20 mg Furosemide (Lasix) 20 mg SLOW IVP NOW [facility] Stop: 02/28/17 12:15 Last Admin: 02/28/17 10:14 Dose: 20 mg Guaifenesin (Robitussin Sf) 200 mg PO Q4H PRN PRN Reason: Cough Hydralazine HCl (Apresoline) 10 mg SLOW IVP Q4H PRN PRN Reason: Systolic BP > 180 Sodium Chloride (Normal Saline 0.9%) 1,000 mls @ 100 mls/hr IV .Q10H [facility] Last Admin: 02/28/17 04:42 Dose: Not Given Loratadine (Claritin) 10 mg PO DAILYPRN PRN PRN Reason: Sinus Symptoms Magnesium Hydroxide (Milk Of Magnesium) 30 ml PO DAILYPRN PRN PRN Reason: Constipation Mineral Oil/White Petrolatum (Eucerin Cream) 0 gm TOP BIDPRN PRN PRN Reason: Dry Skin Miscellaneous Medication (Phos-Nak) 1 pkt PO NOW [facility] Stop: 02/28/17 10:30 Last Admin: 02/28/17 08:28 Dose: 1 pkt Morphine Sulfate (Morphine) 2 mg SLOW IVP Q3H PRN PRN Reason: Pain Last Admin: 02/26/17 01:06 Dose: 2 mg Ondansetron HCl (Zofran Odt) 4 mg PO Q6H PRN PRN Reason: Nausea/Vomiting Ondansetron HCl (Zofran) 4 mg IVP Q6H PRN PRN Reason: Nausea/Vomiting Phenol (Chloraseptic [place] 180 Ml Bot) 0 ml PO PRN PRN PRN Reason: Sore Throat Sodium Chloride ([place] Nasal [place] 0.65%) 0 ml EA NARE QIDPRN PRN PRN Reason: Nasal Congestion
--- NOTE | 2017-02-28 11:21 | DIS ---
PRIMARY CARE PHYSICIAN: Dr. Ashlyn Spaulding. DATE OF ADMISSION: 02/25/2017 DATE OF DISCHARGE: 02/28/2017 DISCHARGE DISPOSITION: Home. PRIMARY DISCHARGE DIAGNOSES: 1. Partial small-bowel obstruction, resolved. 2. Hypophosphatemia, corrected. SECONDARY DISCHARGE DIAGNOSES: Obesity, iron deficiency anemia, and hypertension. PRIMARY PROCEDURE/OPERATION: None. RADIOLOGICAL INVESTIGATION: Small bowel x-ray, which was showing resolution of partial small-bowel o bstruction. Chest x-ray was normal. SIGNIFICANT LABORATORY DATA: Hemoglobin 8.6, creatinine 0.58, phosphorus 1.8, ferritin 13.18. Urina lysis normal. DISCHARGE MEDICATIONS: Aspirin 81 mg p.o. daily, lisinopril with hydrochlorothiazide 20/25 one table t p.o. daily, and verapamil 120 mg p.o. at bedtime. CONTRAINDICATION: None. CODE STATUS: FULL CODE. INPATIENT CONSULTANTS: Dr. Decker was consulted while in hospital. TEST RESULTS PENDING ON DISCHARGE: None. ALLERGIES: No known drug allergy. DISCHARGE PLAN: Post hospital, the patient will follow up with primary care physician in 1 week. HOSPITAL COURSE: A 76-year-old female, who was admitted by me. Please see my HPI for further detail s. The patient was admitted with nausea, vomiting, abdominal pain, and abdominal distention. She wa s diagnosed with this partial small-bowel obstruction. She was admitted to medical floor. She was t reated with NG tube with intermittent suction and n.p.o. The patient was hydrated with IV fluid and the patient's pain was controlled with morphine. The next day, we did a small-bowel x-ray, which ramirez wed improvement in her obstruction. We started clear liquid diet and advanced to regular diet. The patient did not have any problem subsequently. This patient was tried to give an IV iron while in [facility] and she is not tolerating p.o. iron for her iron deficiency anemia, but patient refused to yvan e dose. This patient does not need any blood transfusion requirements. She had suspected hematochez ia while in hospital, but her hemoglobin remained stable. This patient also had recently upper and l ower endoscopy and she did not wanted to call GI during this admission. At this point, per patient jaime nettles, we are discharging her home and she will follow up with primary care physician for further ev aluation and treatment. The patient is seen and examined at bedside today. Please see my progress note from today for furthe r detail.
[2017-02-28 12:04] VITALS: BP 135/98; TEMP 98.7
== END 2017-02-28 15:57 | disposition home or self-care (01) | DRG 389 ==
LOC: ERS 10:11 → SJJU 13:19
PROVIDERS: ADMIT Internal Medicine; ATTEND Internal Medicine
DX: K56.609 Unspecified intestinal obstruction, unspecified as to partial versus complete obstruction (principal); K92.2 Gastrointestinal hemorrhage, unspecified; E83.39 Other disorders of phosphorus metabolism; K76.0 Fatty (change of) liver, not elsewhere classified; E86.0 Dehydration; I10 Essential (primary) hypertension; E66.9 Obesity, unspecified; Z68.32 Body mass index [BMI] 32.0-32.9, adult; D50.9 Iron deficiency anemia, unspecified; K57.30 Diverticulosis of large intestine without perforation or abscess without bleeding
CPT/HCPCS: 36415; 71045; 74250; 80048; 80053; 81001; 82728; 83540; 83550; 83605; 83735; 84100; 85025; 86850; 86900; 86901; 96361; 96374; J1650; J1756; J1940; J2270; J3010; J7050; S0028